=== PATIENT | male | born 1965 | race African-American/Black ===

== ENCOUNTER 2016-12-26 13:48 | Emergency (ER) | payer SELFPAY ==
[~2016-12-26] VITALS: Ht 188 cm; Wt 106.7 kg
[2016-12-26 14:49] LABS: BASOPHILS % (AUTO) 0.6 % (0.0-2.0); EOSINOPHILS % (AUTO) 1.1 % (1.0-6.0); HEMATOCRIT 29.6 % (41-53); HEMOGLOBIN 10.5 g/dL (13.5-17.5); LYMPHOCYTES # (AUTO) 0.6 K/uL (1.0-4.8); LYMPHOCYTES % (AUTO) 19.3 % (22.0-44.0); MEAN CORPUSCULAR HEMOGLOBIN 36.7 pg (26.0-34.0); MEAN CORPUSCULAR HGB CONC 35.5 G/dL (31.0-37.0); MEAN CORPUSCULAR VOLUME 103 fL (80-100); MONOCYTES # (AUTO) 0.5 K/uL (0.1-1.0); MONOCYTES % (AUTO) 15.1 % (2.0-9.0); NEUTROPHILS # (AUTO) 2.1 K/uL (1.8-7.7); NEUTROPHILS % (AUTO) 63.9 % (40.0-70.0); RED BLOOD CELL COUNT(AUTO) 2.86 MIL/uL (4.50-5.90); RED CELL DISTRIBUTION WIDTH 20.7 % (11.5-14.5); WHITE BLOOD COUNT (AUTO) 3.4 K/uL (4.5-11.0)
[2016-12-26 15:02] LABS: INR 1.6 (0.9-1.1); PROTHROMBIN TIME 16.9 SEC (9.4-11.6)
[2016-12-26 15:05] LABS: ANION GAP 13 mmol/L (8-16); CALCIUM, TOTAL 8.3 mg/dL (8.8-10.5); CARBON DIOXIDE 26 mmol/L (22-29); CHLORIDE 95 mmol/L (98-107); CREATININE 1.36 mg/dL (0.60-1.30); GLOMERULAR FILTR. RATE CALC > 60 mL/min (>60); POTASSIUM 3.1 mmol/L (3.5-5.1); SODIUM SERUM 134 mmol/L (136-145); UREA NITROGEN, BLOOD 11 mg/dL (7-18)
[2016-12-26 15:09] LABS: ALANINE AMINOTRANSFERASE 37 U/L (12-78); ALBUMIN 2.8 g/dL (3.4-5.0); ASPARTATE AMINOTRANSFERASE 190 U/L (15-37); BILIRUBIN,TOTAL 19.8 mg/dL (0.1-1.0); TOTAL PROTEIN, SERUM 7.2 g/dL (6.4-8.2)
[2016-12-26 15:11] LABS: TROPONIN I 0.03 ng/mL (0.00-0.05)
[2016-12-26 15:50] LABS: ACETAMINOPHEN < 2 mcg/mL (10-30)
[2016-12-26] MEDS ORDERED: AZITHROMYCIN 500 MG/NS 250 ML IV ONE (16:00)
[2016-12-26] MEDS ORDERED: CefTRIAXone 1 GM/DEXTROSE 50 ML IV ONE (16:00)
[2016-12-26] MEDS ORDERED: POTASSIUM CHLORIDE 20 MEQ ER TABLET PO ONE (16:00)
[2016-12-26 16:45] LABS: REFLEX LACTIC ACID? YES YES
[2016-12-26 16:47] LABS: SALICYLATE < 2.8 mg/dL (2.8-20.0)
[2016-12-26 16:50] VITALS: BP 205/99
[2016-12-26 16:54] LABS: PLATELET COUNT (AUTO) 38 K/uL (150-450); RBC MORPHOLOGY COMMENT ABNORMAL RBC MORPH
== END 2016-12-26 18:27 | disposition left against medical advice (07) ==
LOC: EMS 13:54 → EDBD 13:54 → EMS 18:27
DX: R65.10 Systemic inflammatory response syndrome (SIRS) of non-infectious origin without acute organ dysfunction (principal); K72.90 Hepatic failure, unspecified without coma; R79.1 Abnormal coagulation profile; R74.0 Nonspecific elevation of levels of transaminase and lactic acid dehydrogenase [LDH]; E80.7 Disorder of bilirubin metabolism, unspecified; D72.819 Decreased white blood cell count, unspecified
CPT/HCPCS: 36415; 70450; 71010; 72125; 80053; 82140; 82948; 83605; 83690; 84484; 85025; 85610; 85730; 87040; 93005; 96365; 96366; 96368; 99285; G0480; J0456; J0696; G0481